=== PATIENT | male | born 1945 | race African-American/Black ===

== ENCOUNTER → 2017-04-20 | Outpatient (CLI) | payer MEDICARE, MEDICAID ==
--- NOTE | 2017-04-20 12:01 | RADIOLOGY REPORT (SQ) ---
EXAM DESCRIPTION: HIP RIGHT AP/LATERAL COMPLETED DATE/TIME: 04/20/2017 11:35 am REASON FOR STUDY: PAIN IN UNSPEC HIP (M25.559) M25.559 PAIN IN UNSPECIFIED HIP COMPARISON: None. NUMBER OF VIEWS: Two views. TECHNIQUE: AP pelvis and additional frog-leg view of the right hip. LIMITATIONS: None. FINDINGS: MINERALIZATION: Mineralization is quite heterogeneous, especially the proximal femurs. RIGHT HIP: No fracture or dislocation. No worrisome bone lesions. LEFT HIP: No fracture or dislocation. No worrisome bone lesions. PUBIS AND ISCHIUM: No fracture. PELVIS: No fracture. SACRUM: No fracture or dislocation. No worrisome bone lesions. LOWER LUMBAR SPINE: Scoliosis with degenerative disc changes and facet arthropathy. SOFT TISSUES: No findings. OTHER: Radioactive seed implants are present in the prostate gland. IMPRESSION: The mineralization of hips is heterogeneous. Has the patient had a bone scan recently? TECHNICAL DOCUMENTATION: JOB ID: [id number] [employer]- All Rights Reserved
--- NOTE | 2017-04-20 12:21 | RADIOLOGY REPORT (SQ) ---
EXAM DESCRIPTION: FEMUR RIGHT COMPLETED DATE/TIME: 04/20/2017 11:35 am REASON FOR STUDY: PAIN IN UNSPEC HIP (M25.559) M25.559 PAIN IN UNSPECIFIED HIP COMPARISON: None. NUMBER OF VIEWS: Two views. TECHNIQUE: Two radiographic images acquired of the right femur to include hip and knee in at least o ne projection. LIMITATIONS: None. FINDINGS: MINERALIZATION: The mineralization of the proximal is somewhat heterogeneous. BONES: No acute fracture. No worrisome bone lesions. SOFT TISSUES: No obvious swelling or foreign body. OTHER: No other significant finding. IMPRESSION: Heterogeneous mineralization proximal femur. Has the patient recently had a nuclear [employer] bone scan? TECHNICAL DOCUMENTATION: JOB ID: [id number] [employer]: turn off the lights- All Rights Reserved
== END ==
LOC: RAD 11:09
PROVIDERS: ATTEND Family Medicine
DX: M25.551 Pain in right hip (principal)

== ENCOUNTER 2018-04-07 02:32 | Emergency (ER) | payer MEDICARE, MEDICAID ==
[2018-04-07] MEDS ORDERED: IPRATROPIUM/ALBUTEROL 0.5-2.5 MG/3 ML AMPUL NEB ONE ×3 (03:08)
[2018-04-07] MEDS ORDERED: METHYLPREDNISOLONE INJ 125 MG/2 ML SDV IV ONE (03:08)
[2018-04-07 03:27] LABS: ALANINE AMINOTRANSFERASE 23 U/L (21-72); ALBUMIN 3.5 g/dL (3.5-5.0); ANION GAP 8 (5-19); ASPARTATE AMINO TRANSFERASE 30 U/L (17-59); BILIRUBIN,DIRECT 0.3 mg/dL (0.0-0.4); BILIRUBIN,TOTAL 0.3 mg/dL (0.2-1.3); BLOOD UREA NITROGEN 14 mg/dL (7-20); CALCIUM 8.7 mg/dL (8.4-10.2); CARBON DIOXIDE 27 mmol/L (22-30); CHLORIDE 108 mmol/L (98-107); GLUCOSE 108 mg/dL (75-110); POTASSIUM 3.8 mmol/L (3.6-5.0); SODIUM 143.3 mmol/L (137-145); TOTAL PROTEIN 6.2 g/dL (6.3-8.2)
[2018-04-07 03:29] LABS: ABSOLUTE EOSINOPHILS # (AUTO) 0.1 10^3/uL (0.0-0.6); ABSOLUTE LYMPHOCYTES (AUTO) 1.1 10^3/uL (0.5-4.7); ABSOLUTE MONOCYTES (AUTO) 0.2 10^3/uL (0.1-1.4); ABSOLUTE NEUT (AUTO) 2.1 10^3/uL (1.7-8.2); BASOPHILS % (AUTO) 0.9 % (0-2); HEMATOCRIT 39.3 % (37.9-51.0); HEMOGLOBIN 13.5 g/dL (13.5-17.0); LYMPHOCYTES % (AUTO) 32.3 % (13-45); MEAN CORPUSCULAR HEMOGLOBIN 36.1 pg (27.0-33.4); MEAN CORPUSCULAR HGB CONC 34.3 g/dL (32.0-36.0); MEAN CORPUSCULAR VOLUME 105 fl (80-97); PLATELET COUNT 100 10^3/uL (150-450); RED BLOOD COUNT 3.73 10^6/uL (4.35-5.55); RED CELL DISTRIBUTION WIDTH 17.2 % (11.5-14.0); SEGMENTED NEUTROPHILS % (AUTO) 58.8 % (42-78); TOTAL CELLS COUNTED % (AUTO) 100 %; WHITE BLOOD COUNT 3.6 10^3/uL (4.0-10.5)
[2018-04-07 03:41] LABS: VENOUS BLOOD BASE EXCESS 0.9 mmol/L; VENOUS BLOOD HCO3 25.5 mmol/L (20-32); VENOUS BLOOD PCO2 40.7 mmHg (35-63); VENOUS BLOOD PH 7.42 (7.30-7.42)
[2018-04-07] MEDS: MAGNESIUM SULFATE/D5W 1 GM/100 ML RTUPB IV SCH ×2 (04:46→04:58)
--- NOTE | 2018-04-07 05:35 | RADIOLOGY REPORT (SQ) ---
EXAM DESCRIPTION: XR CHEST 1 VIEW COMPLETED DATE/TME: 04/07/2018 03:08 CLINICAL HISTORY: shortness of breath, hypoxia COMPARISON: 11/06/2013 FINDINGS: Single frontal view of the chest. Atherosclerotic calcification tortuosity of thoracic aorta. Leads overlie the chest. Heart is mildly enlarged. No consolidation, pneumothorax, or pleural effusion. No displaced rib fractures identified. Upper abdominal soft tissues are unremarkable. IMPRESSION: 1. No acute pulmonary process identified. Cardiomegaly.
--- NOTE | 2018-04-07 05:42 | ER Document Report ---
ED Respiratory Problem - General Chief Complaint: Shortness Of Breath Stated Complaint: BREATHING DIFFICULTY Time Seen by Provider: 04/07/18 03:01 Notes: Patient is a 72-year-old male with a history of tobacco abuse and COPD that comes by EMS for chief complaint of worsening shortness of breath for the past 3 days. He denies chest pain,, cough. He states he is wheezing worse than usual. He has a home albuterol, he is not on home oxygen. He denies history of [place], CHF, blood clot. He states he has a history of hypertension, GERD, arthritis. TRAVEL OUTSIDE OF THE [place] IN LAST 30 DAYS: No - Related Data Allergies/Adverse Reactions: metal Allergy (Uncoded 12/02/14 13:00) Past Medical History - General Information source: Patient - Social History Smoking Status: Current Every Day Smoker Frequency of alcohol use: None Drug Abuse: None Lives with: Family Family History: Reviewed & Not Pertinent Patient has suicidal ideation: No Patient has homicidal ideation: No - Past Medical History Cardiac Medical History: Reports: Hx Hypercholesterolemia, Hx Hypertension - CONTROLLED Denies: Hx Heart Attack Pulmonary Medical History: Denies: Hx Asthma, Hx Tuberculosis Neurological Medical History: Denies: Hx Cerebrovascular Accident, Hx Seizures Renal/ Medical History: Denies: Hx Peritoneal Dialysis GI Medical History: Reports: Hx Gastroesophageal Reflux Disease. Denies: Hx Hepatitis, Hx Hiatal Hernia, Hx Ulcer Infectious Medical History: Denies: Hx Hepatitis Past Surgical History: Reports: Hx Open Heart Surgery - stents from accident chest trauma years ago. Denies: Hx Pacemaker - Immunizations Immunizations up to date: Yes Hx Diphtheria, Pertussis, Tetanus Vaccination: Yes Review of Systems - Review of Systems Constitutional: No symptoms reported EENT: No symptoms reported Cardiovascular: No symptoms reported Respiratory: See HPI Gastrointestinal: No symptoms reported Genitourinary: No symptoms reported Male Genitourinary: No symptoms reported Musculoskeletal: No symptoms reported Skin: No symptoms reported Hematologic/Lymphatic: No symptoms reported Neurological/Psychological: No symptoms reported Physical Exam - Vital signs Vitals: Temp Resp Pulse Ox 97.6 F 23 H 90 L 04/07/18 02:35 04/07/18 02:35 04/07/18 02:35 - Notes Notes: GENERAL: Alert. No acute distress. HEAD: Normocephalic, atraumatic. EYES: Pupils equal, round, and reactive to light. Extraocular movements intact. ENT: Oral mucosa moist, tongue midline. NECK: Full range of motion. Supple. Trachea midline. LUNGS: Decreased breath sounds bilaterally, expiratory wheezes, borderline tachypnea, no respiratory distress. HEART: Regular rate and rhythm. No murmur ABDOMEN: Soft, non-tender. Non-distended. Bowel sounds present in all 4 quadrants. EXTREMITIES: Moves all 4 extremities spontaneously. No edema, normal radial and dorsalis pedis pulses bilaterally. No cyanosis. BACK: no cervical, thoracic, lumbar midline tenderness. No saddle anesthesia, normal distal neurovascular exam. NEUROLOGICAL: Alert and oriented x3. Normal speech. [cranial nerves II through XII grossly intact]. PSYCH: Normal affect, normal mood. SKIN: Warm, dry, normal turgor. No rashes or lesions noted. Course - Re-evaluation Re-evalutation: EKG and chest x-ray without specific changes from prior. Patient with hypoxia initially, given 3 duo nebs, magnesium, Solu-Medrol. Wheezing did resolve, he still has decreased breath sounds but is much improved, he states he is ready to leave. CBC unremarkable, chemistry unremarkable, troponin lower than baseline, patient has not had any chest pain, he denies any current symptoms. Venous blood gas is unremarkable. Because of borderline hypoxia I discussed admission. Patient refuses. He states he is not interested whatsoever in staying and he is determined to go home. Discussed the patient, he does agree to ambulate first. Patient actually ambulated surprisingly well with a strong gait, no labored breathing, and no hypoxia. Placing on prednisone. He states he has plenty of albuterol. He states he will follow-up with his primary care. Discussed smoking cessation. Patient states that if he feels worse he will come back. Stable at time of discharge. - Vital Signs Vital signs: Temp Pulse Resp BP Pulse Ox 98.0 F 70 18 140/75 H 100 04/07/18 06:11 04/07/18 06:11 04/07/18 06:11 04/07/18 06:11 04/07/18 06:11 - Laboratory Result Diagrams: 04/07/18 02:57 04/07/18 02:57 Laboratory results interpreted by me: 04/07/18 04/07/18 02:57 02:57 WBC 3.6 L RBC 3.73 L MCV 105 H MCH 36.1 H RDW 17.2 H Plt Count 100 L Chloride 108 H Total Protein 6.2 L Discharge - Discharge Clinical Impression: Wheezing, COPD exacerbation, Shortness of breath, Tobacco abuse Condition: Stable Disposition: HOME, SELF-CARE Additional Instructions: Your chest x-ray does not show pneumonia, your workup and evaluation are consistent with COPD exacerbation. Take prednisone as prescribed, stop smoking , use your albuterol inhaler. Follow-up with your primary care within the next 3 days for recheck. Return if he will worsen in anyway including difficulty breathing, fever, chest pain, or any other concerning symptoms. Prescriptions: Prednisone 60 mg PO DAILY #15 tablet
[2018-04-07 06:15] VITALS: BP 140/75
[2018-04-07 06:20] LABS: ALKALINE PHOSPHATASE 69 U/L (38-126)
--- NOTE | 2018-04-07 14:32 | EKG REPORT ---
SEVERITY:- ABNORMAL ECG - SINUS RHYTHM LEFT ATRIAL ABNORMALITY BORDERLINE LEFT AXIS DEVIATION ABNRM R PROG, CONSIDER ASMI OR LEAD PLACEMENT : Confirmed by: Brittnee Wheeler MD 07-Apr-2018 14:31:07
== END 2018-04-07 06:11 | disposition home or self-care (01) ==
LOC: ER 02:32
DX: J44.1 Chronic obstructive pulmonary disease with (acute) exacerbation (principal); R06.02 Shortness of breath; I10 Essential (primary) hypertension; F17.200 Nicotine dependence, unspecified, uncomplicated; Z79.899 Other long term (current) drug therapy; Z91.048 Other nonmedicinal substance allergy status
CPT/HCPCS: 93005; 94640 ×2; 99285; 96374; 96375; 36415; 85025; 80053; 84484; 82803; 71045; 93010; J2930; J3475; A9270; J7620